=== PATIENT | male | born 1940 | race Caucasian/White ===

== ENCOUNTER 2021-10-09 08:46 | Emergency (ER) | payer OTHER ==
[2021-10-09 10:12] LABS: ALBUMIN 3.5 g/dL (3.4-5.0); BILIRUBIN - TOTAL 0.6 mg/dL (0.2-1.0); BUN/CREAT RATIO (CALC) 16.7 RATIO; CREATININE 1.62 mg/dL (0.67-1.17); GLOBULIN (CALCULATION) 3.9 g/dL; POTASSIUM 4.3 mmol/L (3.5-5.1); TOTAL PROTEIN 7.4 g/dL (6.4-8.2)
[2021-10-09 10:17] LABS: BASOPHIL 0.6 % (0-2); EOSINOPHIL 4.4 % (0-7); HCT 41.6 % (42.0-52.0); HGB 13.6 g/dl (13.2-18.0); LYMPHOCYTE 14.7 % (15-48); MCH 31.5 pg (25.0-31.0); MCHC 32.7 g/dL (32.0-36.0); MCV 96.3 fL (78.0-100.0); MONOCYTE 17.2 % (0-12); MPV 11.1 fL (6.0-9.5); NRBC 0; PLT 143 K/uL (150-400); RBC 4.32 M/uL (4.70-6.00); RDW 13.9 % (11.5-14.0); WBC 7.3 K/uL (4.0-10.5)
[2021-10-09 10:20] LABS: INR 1.35 (0.9-1.2); PTT 44.5 SECONDS (24.4-34.7)
[2021-10-09 10:43] LABS: BILIRUBIN NEGATIVE (NEGATIVE); BLOOD 2+ Ery/uL (NEGATIVE); CLARITY CLEAR (CLEAR); COLOR YELLOW (YELLOW); GLUCOSE (U) NORMAL (NORMAL); LEUKOCYTES NEGATIVE Leu/uL (NEGATIVE); NITRITE NEGATIVE (NEGATIVE); PROTEIN 2+ mg/dL (NEGATIVE); UROBILINOGEN 0.2 mg/dL (0.2-1.0)
[2021-10-09 10:59] LABS: BACTERIA TRACE; URINARY RBC 20-50
== END 2021-10-09 11:53 | disposition home or self-care (01) ==
LOC: FER 08:46
PROVIDERS: Emergency Medicine
DX: R94.31 Abnormal electrocardiogram [ECG] [EKG] (principal); I10 Essential (primary) hypertension; I48.91 Unspecified atrial fibrillation; Z20.822 Contact with and (suspected) exposure to COVID-19; Z88.6 Allergy status to analgesic agent; Z79.01 Long term (current) use of anticoagulants
CPT/HCPCS: 36415; 70450; 71045; 80053; 80061; 81001; 82550; 84484; 85025; 85610; 85730; 93005; U0002